=== PATIENT | male | born 1980 | race Caucasian/White ===

== ENCOUNTER 2016-10-12 01:17 | Emergency (ER) | payer BC ==
[2016-10-12] MEDS ORDERED: IPRATROPIUM/ALBUTEROL (0.5MG/3MG) NEB INH ONE (01:30)
[2016-10-12] MEDS ORDERED: METHYLPREDNISOLONE PF 125MG/VIAL IM ONE (01:47)
[2016-10-12] MEDS ORDERED: METHYLPREDNISOLONE PF 125MG/VIAL IVP ONE (01:49)
[2016-10-12 01:54] LABS: BASO % 0.4 % (0-6); GRAN % 67.5 % (47-80); HEMATOCRIT 41.2 % (42.0-52.0); LYMPH % 20.7 % (16-45); MEAN CORPUSCULAR HEMOGLOBIN 30.2 pg (27-33); MEAN PLATELET VOLUME 9.6 fl (7.4-10.4); MONO % 10.4 % (0-9); PLATELET COUNT 430 K/uL (130-400); RED BLOOD COUNT 4.63 M/uL (4.40-5.70); RED CELL DISTRIBUTION WIDTH 13.3 % (11.5-14.5); WHITE BLOOD COUNT W/O DIFF 10.8 K/uL (4.2-12.2)
[2016-10-12 02:04] LABS: ANION GAP 11.9 (7-16); BLOOD UREA NITROGEN 10 mg/dL (9-20); CARBON DIOXIDE 23.1 mmol/L (22-30); CREATININE 1.1 mg/dL (0.66-1.25); EST GLOMERULAR FILTRATION RATE > 60 ml/min; GLUCOSE,RANDOM 88 mg/dL (70-110)
--- NOTE | 2016-10-12 02:09 | Emergency Department Record ---
History of Present Illness - General Chief Complaint: Shortness of breath Stated Complaint: ABRAHAN Time Seen by Provider: 10/12/16 01:19 Source: Patient Mode of Arrival: Ambulatory Limitations: No limitations - History of Present Illness Initial Comments: pt is c/o sob. he states he has been sick for a month w prod cough and hemoptysis and wheezing and sob., he has a hx of a necrotizing pneumonia in 2009 out in [place] after inhaling [place]ier water. he was very ill and has had intermittant bouts since w his lungs that includes hemoptysis. he says he was warned that this would happen MD Complaint: Cough, Pain with inspiration, Shortness of breath Onset/Timin -: Hour(s) Radiation: Other Severity scale (1-10): 8 Quality: Sharp, Stabbing Consistency: Constant, Getting worse Improves With: Nothing Worsens With: Coughing, Inspiration Context: Recent URI Associated Symptoms: Cough, Hemoptysis, Pain with inspiration, Sputum production Treatments Prior to Arrival: None - Related Data Home Oxygen Therapy: No Previous Rx's Medication Instructions Recorded Azithromycin [Zithromax] 250 mg PO DAILY #4 tab 10/12/16 Allergies Allergy/AdvReac Type Severity Reaction Status Date / Time Penicillins Allergy PT UNSURE Verified 10/12/16 01:20 OF REACTION Travel Screening - Travel/Exposure Within Last 30 Days Have you traveled within the last 30 days?: No - Travel Symptoms Symptom Screening: None Review of Systems Reviewed: No additional complaints except as noted below Constitutional: Reports: As per HPI. Denies: Chills, Fever, Malaise, Night sweats, Weakness, Weight change Eyes: Reports: As per HPI. Denies: Eye discharge, Eye pain, Photophobia, Vision change ENT: Reports: As per HPI. Denies: Congestion, Dental pain, Ear pain, Epistaxis , Hearing loss, Throat pain Respiratory: Reports: As per HPI. Denies: Cough, Dyspnea, Hemoptysis, Stridor, Wheezes Cardiovascular: Reports: As per HPI. Denies: Arrhythmia, Chest pain, Dyspnea on exertion, Edema, Murmurs, Orthopnea, Palpitations, Paroxysmal nocturnal dyspnea, Rheumatic Fever, Syncope Endocrine: Reports: As per HPI. Denies: Fatigue, Heat or cold intolerance, Polydipsia, Polyuria Gastrointestinal: Reports: As per HPI. Denies: Abdominal pain, Constipation, Diarrhea, Hematemesis, Hematochezia, Melena, Nausea, Vomiting Genitourinary: Reports: As per HPI. Denies: Dysuria, Frequency, Hematuria, Incontinence, Retention, Testicular pain, Testicular mass, Urgency Musculoskeletal: Reports: As per HPI. Denies: Arthralgia, Back pain, Gout, Joint swelling, Myalgia, Neck pain Skin: Reports: As per HPI. Denies: Bruising, Change in color, Change in hair/ nails, Lesions, Pruritus, Rash Neurological: Reports: As per HPI. Denies: Abnormal gait, Confusion, Headache, Numbness, Paresthesias, Seizure, Tingling, Tremors, Vertigo, Weakness Psychiatric: Reports: As per HPI. Denies: Anxiety, Auditory hallucinations, Depression, Homicidal thoughts, Suicidal thoughts, Visual hallucinations Hematological/Lymphatic: Reports: As per HPI. Denies: Anemia, Blood Clots, Easy bleeding, Easy bruising, Swollen glands Past Medical History - SOCIAL HISTORY Smoking Status: Current every day smoker Drug Use Detail:: Marijuana - RESPIRATORY Hx Respiratory Disorders: Yes Hx Pneumonia: Yes (2009; 2 other episodes needing IV antibiotics) - CARDIOVASCULAR Hx Cardio Disorders: No - NEURO Hx Neuro Disorders: No - GI Hx GI Disorders: No - Hx Genitourinary Disorders: No - ENDOCRINE Hx Endocrine Disorders: No - MUSCULOSKELETAL Hx Musculoskeletal Disorders: Yes - PSYCH Hx Psych Problems: Yes Comment:: PTSD - HEMATOLOGY/ONCOLOGY Hx Hematology/Oncology Disorders: No Family Medical History Any Significant Family History?: Yes Hx Diabetes: Father Physical Exam - General General Appearance: Alert, Oriented x3, Cooperative, Mild distress - Head Head exam: Normal inspection - Eye Eye exam: Normal appearance, PERRL, EOMI Pupils: Normal accommodation - ENT ENT exam: Normal exam, Mucous membranes moist, Normal external ear exam, Normal orophraynx Ear exam: Normal external inspection. negative: External canal tenderness Nasal Exam: Normal inspection. negative: Discharge, Sinus tenderness Mouth exam: Normal external inspection, Tongue normal Teeth exam: Normal inspection. negative: Dental caries Throat exam: Normal inspection. negative: Tonsillar erythema, Tonsillar exudate - Neck Neck exam: Normal inspection, Full ROM. negative: Tenderness - Respiratory Respiratory exam: Rhonchi, Wheezes. negative: Respiratory distress - Cardiovascular Cardiovascular Exam: Regular rate, Normal rhythm, Normal heart sounds - GI/Abdominal GI/Abdominal exam: Soft, Normal bowel sounds. negative: Tenderness - Rectal Rectal exam: Deferred - exam: Deferred - Extremities Extremities exam: Normal inspection, Full ROM, Normal capillary refill. negative: Tenderness - Back Back exam: Reports: Normal inspection, Full ROM. Denies: Muscle spasm, Rash noted, Tenderness - Neurological Neurological exam: Alert, CN II-XII intact, Normal gait, Oriented X3 - Psychiatric Psychiatric exam: Normal affect, Normal mood - Skin Skin exam: Dry, Intact, Normal color, Warm Course Vital Signs 10/12/16 10/12/16 01:21 01:27 Temperature 97.9 F Pulse Rate 84 69 Respiratory 26 H 20 Rate Blood Pressure 140/79 Pulse Ox 100 100 Medical Decision Making - Lab Data Result diagrams: 10/12/16 01:48 10/12/16 01:48 Lab Results 10/12/16 Range/Units 01:48 WBC 10.8 (4.2-12.2) K/uL RBC 4.63 (4.40-5.70) M/uL Hgb 14.0 (14.0-18.0) gm/dl Hct 41.2 L (42.0-52.0) % MCV 89.0 (81-97) fl MCH 30.2 (27-33) pg MCHC 34.0 (32-36) g/dl RDW 13.3 (11.5-14.5) % Plt Count 430 H (130-400) K/uL MPV 9.6 (7.4-10.4) fl Gran % 67.5 (47-80) % Lymphocytes % 20.7 (16-45) % Monocytes % 10.4 H (0-9) % Eosinophils % 1.0 (0-6) % Basophils % 0.4 (0-6) % Disposition Disposition: Discharge Clinical Impression: Hemoptysis Pneumonia Qualifiers: Pneumonia type: due to unspecified organism Laterality: bilateral Lung location : unspecified part of lung Qualified Code(s): J18.9 - Pneumonia, unspecified organism Disposition: Home, Self-Care Condition: (1) Good Instructions: Dyspnea (ED), Community-acquired Pneumonia (ED), Acute Hemoptysis (ED) Additional Instructions: follow up with family doctor without fail. return sooner if worse. have hemoptysis further evaluated Prescriptions: Azithromycin [Zithromax] 250 mg PO DAILY #4 tab Forms: Patient Portal Access
[2016-10-12] MEDS ORDERED: AZITHROMYCIN 500 MG TABLET PO ONE (02:50)
[2016-10-12] MEDS ORDERED: KETOROLAC 30 MG/ML VIAL IVP ONE (02:50)
[2016-10-12] MEDS ORDERED: ALBUTEROL HFA 8 GM INHALER INH ONE (02:50)
== END 2016-10-12 03:03 | disposition home or self-care (01) ==
LOC: ER 01:17
DX: J18.9 Pneumonia, unspecified organism (principal); R04.2 Hemoptysis; F17.200 Nicotine dependence, unspecified, uncomplicated
CPT/HCPCS: 71020; 80048; 85025; 94640; 94664; 96374; 96375; 99284; J1885; J2930

== ENCOUNTER 2017-08-18 09:10 | Inpatient (IN) | payer BC ==
[2017-08-18] MEDS ORDERED: 0.9 % SODIUM CHLORIDE 1,000 ML BAG IV ONE ×2 (09:20→11:25)
[2017-08-18] MEDS ORDERED: MORPHINE SULFATE 5 MG/ML PFS IVP ONE ×2 (09:20→12:29)
[2017-08-18] MEDS ORDERED: ONDANSETRON HCL IV 4 MG/2 ML VIAL IV ONE (09:20)
--- NOTE | 2017-08-18 09:27 | Emergency Department Record ---
History of Present Illness - General Chief complaint: Rectal bleeding Stated complaint: BLOODY STOOL,ABD PAIN Time Seen by Provider: 08/18/17 09:20 Source: Patient, Family Mode of Arrival: Ambulatory Limitations: No limitations - History of Present Illness Initial comments: 37 yo male presents with nausea, vomiting and diarrhea that started Saturday evening around 6pm. The symptoms have continued through the weekend. On Saturday he noticed some blood in the diarrhea as well. No fever. He continues to have cramps, nausea, and vomiting. No history of travel, antibiotics. He works in a grocery store. No history of GI disease in the past. PCP is Gwendolyn Chacko MD complaint: Other (mixed with diarrhea) -: Days(s) Radiation: Other (diffuse) Quality: Cramping Consistency: Constant Improves with: None Worsens with: Eating Context: Other Associated Symptoms: Loss of appetite, Vomiting - Related Data Allergies Allergy/AdvReac Type Severity Reaction Status Date / Time Penicillins Allergy PT UNSURE Verified 08/18/17 09:16 OF REACTION Review of Systems Constitutional: Reports: Malaise, Weakness. Denies: Chills, Fever Eyes: Denies: Eye discharge, Photophobia, Vision change ENT: Denies: Congestion, Ear pain, Epistaxis, Throat pain Respiratory: Denies: Cough, Dyspnea, Hemoptysis, Stridor, Wheezes Cardiovascular: Denies: Chest pain, Palpitations, Syncope Endocrine: Reports: Fatigue Gastrointestinal: Reports: Abdominal pain, Diarrhea, Hematochezia, Nausea, Vomiting. Denies: Constipation, Hematemesis, Melena Genitourinary: Denies: Dysuria, Frequency, Hematuria Musculoskeletal: Denies: Arthralgia, Back pain, Joint swelling, Myalgia Skin: Denies: Bruising, Change in color, Rash Neurological: Denies: Headache, Numbness, Weakness Psychiatric: Denies: Anxiety Hematological/Lymphatic: Denies: Blood Clots, Easy bleeding, Easy bruising, Swollen glands Past Medical History - SOCIAL HISTORY Smoking Status: Current every day smoker Drug Use Detail:: Marijuana - RESPIRATORY Hx Respiratory Disorders: Yes Hx Pneumonia: Yes (2009; 2 other episodes needing IV antibiotics) - CARDIOVASCULAR Hx Cardio Disorders: No - NEURO Hx Neuro Disorders: No - GI Hx GI Disorders: No - Hx Genitourinary Disorders: No - ENDOCRINE Hx Endocrine Disorders: No - MUSCULOSKELETAL Hx Musculoskeletal Disorders: Yes - PSYCH Hx Psych Problems: Yes Comment:: PTSD - HEMATOLOGY/ONCOLOGY Hx Hematology/Oncology Disorders: No Family Medical History Hx Diabetes: Father Physical Exam - General General Appearance: Alert, Oriented x3, Cooperative, No acute distress Limitations: No limitations - Head Head exam: Normal inspection - Eye Eye exam: Normal appearance, PERRL. negative: Conjunctival injection, Scleral icterus - ENT ENT exam: Normal exam, Mucous membranes moist Ear exam: Normal external inspection Nasal Exam: Normal inspection Mouth exam: Normal external inspection Teeth exam: Normal inspection Throat exam: Normal inspection - Neck Neck exam: Normal inspection, Full ROM. negative: Tenderness - Respiratory Respiratory exam: Normal lung sounds bilaterally. negative: Respiratory distress, Rhonchi, Stridor, Wheezes - Cardiovascular Cardiovascular Exam: Regular rate, Normal rhythm, Normal heart sounds - GI/Abdominal GI/Abdominal exam: Soft, Tenderness (soft but diffusely tender abdomen) - exam: Deferred - Extremities Extremities exam: Normal inspection, Full ROM, Normal capillary refill. negative: Tenderness - Back Back exam: Reports: Normal inspection, Full ROM. Denies: Muscle spasm, Rash noted, Tenderness - Neurological Neurological exam: Alert, Normal gait, Oriented X3, Reflexes normal - Psychiatric Psychiatric exam: Normal affect, Normal mood - Skin Skin exam: Dry, Intact, Normal color, Warm Course Vital Signs 08/18/17 09:16 Temperature 98.2 F Pulse Rate [ 71 Pulse Ox Probe] Respiratory 20 Rate Blood Pressure 138/84 [Left Arm] Pulse Ox 99 - Reevaluation(s) Reevaluation #1: 08/18/17 10:05 The CBC was reviewed WBC is 16 CT of the abdomen and pelvis ordered with the pain and elevated WBC count 08/18/17 10:19 No changes on the CMP Lipase is 107 08/18/17 16:[address] scan demonstrates colitis. There is severe wall thickening affecting the ascending and transverse colon with inflammation of the adjacent fat and small amount of free fluid. The patient is a patient of the [facility]. Milka Ogden. She accepts the patient for IV fluids, antibiotics, pain control, NPO and reassessment. Medical Decision Making - Lab Data Result diagrams: 08/18/17 09:35 08/18/17 09:35 Disposition Disposition: Admit Clinical Impression: Vomiting and diarrhea, Colitis Disposition: Still a Patient at [facility] Decision to Admit: Admit from ER Decision to Admit Date: 08/18/17 Decision to Admit Time: 16:05 Time Discussed w/Accepting Physician: 16:05 Condition: (2) Stable Forms: Patient Portal Access Time of Disposition: 16:05 Quality - Quality Measures Quality Measures: N/A - Blood Pressure Screening Does Patient Have Any of the Following: No Blood Pressure Classification: Hypertensive Reading Systolic Measurement: 144 Diastolic Measurement: 79 Screening for High Blood Pressure: < Pre-Hypertensive BP, F/U Documented > [ [id number]] Pre-Hypertensive Follow-up Interventions: Referral to alternative/primary care provider.
[2017-08-18 09:50] LABS: HEMATOCRIT 43.1 % (42.0-52.0); MEAN CELL VOLUME 86.5 fl (81-97); MEAN CORPUSCULAR HEMOGLOBIN 30.1 pg (27-33); MEAN CORPUSCULAR HGB CONC 34.8 g/dl (32-36); MEAN PLATELET VOLUME 9.8 fl (7.4-10.4); PLATELET COUNT 385 K/uL (130-400); RED BLOOD COUNT 4.98 M/uL (4.40-5.70); RED CELL DISTRIBUTION WIDTH 14.9 % (11.5-14.5); WHITE BLOOD COUNT W/O DIFF 16.6 K/uL (4.2-12.2)
[2017-08-18 09:58] LABS: PLATELET ESTIMATE NORMAL (NORMAL)
[2017-08-18 09:59] LABS: BLOOD UREA NITROGEN 11 mg/dL (6-20); CREATININE 0.9 mg/dL (0.7-1.2); EST GLOMERULAR FILTRATION RATE > 60 mL/min; TOTAL PROTEIN 7.7 g/dL (6.6-8.7)
[2017-08-18 10:01] LABS: GLUCOSE,RANDOM 122 mg/dL (74-109)
[2017-08-18 10:04] LABS: ALBUMIN 4.6 g/dL (4.0-5.0); ALKALINE PHOSPHATASE 67 U/L (40-129); ALT/SGPT 22 U/L (<41); AST/SGOT 14 U/L (10.0-50.0); BILIRUBIN,DIRECT 0.2 mg/dL (0-0.3); LIPASE 107 U/L (13-60)
[2017-08-18] MEDS ORDERED: ONDANSETRON HCL IV 4 MG/2 ML VIAL IVP ONE (10:09)
[2017-08-18 12:21] LABS: URINE APPEARANCE CLEAR; URINE BILIRUBIN NEGATIVE (NEGATIVE); URINE BLOOD TRACE-I (NEGATIVE); URINE COLOR YELLOW; URINE GLUCOSE (UA) NEGATIVE (NEGATIVE); URINE KETONE TRACE (NEGATIVE); URINE LEUKOCYTE ESTERASE NEGATIVE (NEGATIVE); URINE NITRITE NEGATIVE (NEGATIVE); URINE PROTEIN NEGATIVE (NEGATIVE); URINE UROBILINOGEN 0.2 E.U./dL (0.20 - 1.00)
[2017-08-18 12:30] LABS: URINE EPITHELIAL CELLS 0 - 2 (FEW); URINE RBC 0 - 2 (NONE SEEN); URINE WBC 0 - 2 (0-2/hpf)
[2017-08-18 12:31] LABS: URINE BACTERIA 1+
[2017-08-18 12:56] LABS: ROTOVIRUS NOT DETECTED (NOT DETECT)
[2017-08-18 13:10] LABS: CRYPTOSPORIDIUM PARVUM ANTIGEN NOT DETECTED (NOT DETECT); GIARDIA LAMBLIA ANTIGEN NOT DETECTED (NOT DETECT)
[2017-08-18 14:08] LABS: MOLECULAR C DIFF TOXIN SCREEN NOT DETECTED (NOT DETECT)
[2017-08-18] MEDS ORDERED: HYDROMORPHONE HCL 1 MG/ML SYRINGE IVP ONE (16:33)
[2017-08-18] MEDS ORDERED: PROMETHAZINE HCL 12.5 MG in 0.9 % SODIUM CHLORIDE 100ML 100 ML IVPB ONE (16:37)
[2017-08-18] MEDS ORDERED: CIPROFLOXACIN LACTATE/D5W 400 MG/200 ML BAG IVPB SCH (17:31)
[2017-08-18] MEDS ORDERED: METRONIDAZOLE IVPB 500 MG/100 ML BAG IVPB SCH (17:31)
[2017-08-18] MEDS ORDERED: ACETAMINOPHEN 1,000 MG/100 ML BTL IVPB SCH (17:31)
[2017-08-18] MEDS: 0.9 % SODIUM CHLORIDE 1000ML 1,000 ML IV PRN (17:58)
[2017-08-18] MEDS: MORPHINE SULFATE 5 MG/ML PFS IVP PRN (23:02)
[2017-08-19] MEDS: ACETAMINOPHEN 1,000 MG/100 ML BTL IVPB SCH ×4 (03:32→22:05)
[2017-08-19] MEDS: MORPHINE SULFATE 5 MG/ML PFS IVP PRN ×5 (03:35→22:26)
[2017-08-19] MEDS: METRONIDAZOLE IVPB 500 MG/100 ML BAG IVPB SCH ×3 (03:44→20:02)
[2017-08-19] MEDS: 0.9 % SODIUM CHLORIDE 1000ML 1,000 ML IV PRN ×2 (03:45→16:55)
[2017-08-19] MEDS: ONDANSETRON HCL IV 4 MG/2 ML VIAL IVP PRN (06:15)
[2017-08-19 06:41] LABS: BASO % 0.4 % (0-6); EOS % 2.2 % (0-6); GRAN % 58.7 % (47-80); HEMATOCRIT 39.2 % (42.0-52.0); HEMOGLOBIN 13.1 gm/dl (14.0-18.0); LYMPH % 26.6 % (16-45); MEAN CELL VOLUME 89.7 fl (81-97); MEAN CORPUSCULAR HGB CONC 33.4 g/dl (32-36); MEAN PLATELET VOLUME 9.7 fl (7.4-10.4); MONO % 12.1 % (0-9); PLATELET COUNT 298 K/uL (130-400); RED BLOOD COUNT 4.37 M/uL (4.40-5.70); WHITE BLOOD COUNT W/O DIFF 7.8 K/uL (4.2-12.2)
[2017-08-19 06:44] LABS: MEAN CORPUSCULAR HEMOGLOBIN 29.9 pg (27-33)
[2017-08-19 06:56] LABS: ALB/GLOB RATIO 1.3 (1.1-1.8); ALBUMIN 3.7 g/dL (4.0-5.0); ALKALINE PHOSPHATASE 53 U/L (40-129); ALT/SGPT 12 U/L (<41); AST/SGOT 11 U/L (10.0-50.0); BLOOD UREA NITROGEN 9 mg/dL (6-20); CREATININE 0.9 mg/dL (0.7-1.2); EST GLOMERULAR FILTRATION RATE > 60 mL/min; GLUCOSE,RANDOM 81 mg/dL (74-109); LIPASE 176 U/L (13-60); TOTAL PROTEIN 6.5 g/dL (6.6-8.7)
[2017-08-19] MEDS ORDERED: CIPROFLOXACIN LACTATE/D5W 400 MG/200 ML BAG IVPB SCH (08:00)
--- NOTE | 2017-08-19 10:53 | History & Physical ---
History of Present Illness - Date of Service Date of Service for History & Physical: 08/19/17 - History of Present Illness Admitting Diagnosis: Colitis History of Present Illness: 37yo male with CC of abdominal pain. He has history of PTSD, and hospitalization for pneumonia. Patient began having abdominal pain Varinder evening that woke him from sleep. Says it was diffuse and sharp. He then began having nausea and vomiting, having trouble keeping water down. He then developed frequent loose stool that eventually became mostly liquid with blood in it. He decided to come to the ED because his pain wasn't getting any better. While in the ED, patient was afebrile with temp of 98.2, blood pressure of 138/ 84. He had WBC count of 16.6. UA was negative for infection but did have trace ketones. He underwent CT of the abdomen which revealed severe wall thickening of the ascending and transverse colon with fat stranding and small amount of free fluid. His stool was checked and negative for C.diff, crypto, giardia, polys, and rota virus. He was started on IV cipro and flagyl and admitted. 08/19/17- Patient states he is feeling a little better. Says the pain medication has been helpful, but whenever it wears off he says his pain becomes more intense. He is not having any more vomiting currently, occasionally still has some nausea when the pain intensifies. He says the pain is primarily lower abdomen in both the left and right sides. He says it is sharp, but he also has some cramping pain. He did not have any loose stool through the night while being NPO but he had some water this morning and says he did have a BM. He says there isn't much fecal material, mostly clear liquid with scant bright red/pink blood. He denies any fevers/chills. Has not traveled recently. No sick contacts. No new foods or undercooked food. He has never had this issue before. He says his younger brother has "bowel issues" and has had a colonoscopy but he is unsure what he was diagnosed with. Travel Screening - Travel/Exposure Within Last 30 Days Have you traveled within the last 30 days?: No - Travel/Exposure Within Last Year Have you traveled outside the [place] in the last year?: No - Additonal Travel Details Have you been exposed to anyone with a communicable illness?: No - Travel Symptoms Symptom Screening: None Review of Systems Constitutional: Reports: Malaise, Weakness. Denies: Chills, Fever Eyes: Denies: Eye discharge, Photophobia, Vision change ENT: Denies: Congestion, Ear pain, Epistaxis, Throat pain Respiratory: Denies: Cough, Dyspnea, Hemoptysis, Stridor, Wheezes Cardiovascular: Denies: Chest pain, Palpitations, Syncope Endocrine: Reports: Fatigue Gastrointestinal: Reports: Abdominal pain, Diarrhea, Hematochezia, Nausea, Vomiting. Denies: Constipation, Hematemesis, Melena Genitourinary: Denies: Dysuria, Frequency, Hematuria Musculoskeletal: Denies: Arthralgia, Back pain, Joint swelling, Myalgia Skin: Denies: Bruising, Change in color, Rash Neurological: Denies: Headache, Numbness, Weakness Psychiatric: Denies: Anxiety Hematological/Lymphatic: Denies: Blood Clots, Easy bleeding, Easy bruising, Swollen glands Past Medical History - SOCIAL HISTORY Smoking Status: Former smoker Alcohol Use: None Drug Use: Occasional Drug Use Detail:: Marijuana - RESPIRATORY Hx Respiratory Disorders: Yes Hx Pneumonia: Yes (2009; 2 other episodes needing IV antibiotics) - CARDIOVASCULAR Hx Cardio Disorders: No - NEURO Hx Neuro Disorders: No - GI Hx GI Disorders: No - Hx Genitourinary Disorders: No - ENDOCRINE Hx Endocrine Disorders: No - MUSCULOSKELETAL Hx Musculoskeletal Disorders: Yes - PSYCH Hx Psych Problems: Yes Comment:: PTSD - HEMATOLOGY/ONCOLOGY Hx Hematology/Oncology Disorders: No Family Medical History Any Significant Family History?: Yes Hx Diabetes: Father H&P Meds/Allergies - Allergies Allergies: Allergies Allergy/AdvReac Type Severity Reaction Status Date / Time Penicillins Allergy PT UNSURE Verified 08/18/17 09:16 OF REACTION - Active Medications Active Medications: Current Medications Citalopram Hydrobromide (Celexa) 10 mg PO QHS PADMAJA Sodium Chloride () 1,000 mls @ 125 mls/hr IV .Q8H PRN PRN Reason: LARGE VOLUME IV Last Admin: 08/19/17 03:45 Dose: 125 mls/hr Metronidazole/Sodium Chloride (Flagyl) 500 mg in 100 mls @ 100 mls/hr IVPB Q8H PADMAJA Stop: 08/24/17 04:01 Last Infusion: 08/19/17 04:45 Dose: Infused Acetaminophen (Ofirmev) 1,000 mg in 100 mls @ 400 mls/hr IVPB Q6H [facility] Last Admin: 08/19/17 09:21 Dose: 400 mls/hr Ciprofloxacin Lactate (Cipro) 400 mg in 200 mls @ 200 mls/hr IVPB Q12H PADMAJA Stop: 08/24/17 21:01 Morphine Sulfate (Morphine Sulfate) 4 mg IVP Q4HR PRN PRN Reason: Abdominal Pain Stop: 08/25/17 17:32 Last Admin: 08/19/17 09:22 Dose: 4 mg Ondansetron HCl (Zofran) 4 mg IVP Q4H PRN PRN Reason: NAUSEA Last Admin: 08/19/17 06:15 Dose: 4 mg Physical Exam - Vital Signs Vital Signs: Vital Signs - Last 24 Hrs Temp Pulse Resp BP BP Pulse Ox 08/19/17 09:00 54 L 16 08/19/17 03:57 98.3 F 54 L 16 120/58 96 08/18/17 23:31 98.2 F 57 L 18 116/65 97 08/18/17 20:09 16 08/18/17 17:31 98 F 56 L 16 146/84 98 - General General Appearance: Alert, Oriented x3, Cooperative, No acute distress Limitations: No limitations - Head Head exam: Normal inspection - Eye Eye exam: Normal appearance, PERRL. negative: Conjunctival injection, Scleral icterus - ENT ENT exam: Normal exam, Mucous membranes moist Ear exam: Normal external inspection Nasal Exam: Normal inspection Mouth exam: Normal external inspection Teeth exam: Normal inspection Throat exam: Normal inspection - Neck Neck exam: Normal inspection, Full ROM. negative: Tenderness - Respiratory Respiratory exam: Normal lung sounds bilaterally. negative: Respiratory distress, Rhonchi, Stridor, Wheezes - Cardiovascular Cardiovascular Exam: Regular rate, Normal rhythm, Normal heart sounds - GI/Abdominal GI/Abdominal exam: Soft, Hyperactive bowel sounds, Tenderness (soft; no guarding ; ttp in the LLQ and RLQ) - exam: Deferred - Extremities Extremities exam: Normal inspection, Full ROM, Normal capillary refill. negative: Tenderness - Back Back exam: Reports: Normal inspection, Full ROM. Denies: Muscle spasm, Rash noted, Tenderness - Neurological Neurological exam: Alert, Normal gait, Oriented X3, Reflexes normal - Psychiatric Psychiatric exam: Normal affect, Normal mood - Skin Skin exam: Dry, Intact, Normal color, Warm Results - Labs Result Diagrams: 08/19/17 06:29 08/19/17 06:29 Labs Last 24 Hours: Laboratory Results - last 24 hr 08/19/17 08/19/17 06:29 06:29 WBC 7.8 RBC 4.37 L Hgb 13.1 L Hct 39.2 L MCV 89.7 MCH 29.9 MCHC 33.4 RDW 15.0 H Plt Count 298 MPV 9.7 Gran % 58.7 Lymphocytes % 26.6 Monocytes % 12.1 H Eosinophils % 2.2 Basophils % 0.4 Sodium 142 Potassium 3.8 Chloride 107 Carbon Dioxide 23.0 Anion Gap 12.0 BUN 9 Creatinine 0.9 Estimated GFR > 60 Random Glucose 81 Calcium 8.5 L Total Bilirubin 0.70 AST 11 ALT 12 Alkaline Phosphatase 53 Total Protein 6.5 L Albumin 3.7 L Globulin 2.8 Albumin/Globulin Ratio 1.3 Lipase 176 H - Imaging and Cardiology CT scan - abdomen Status: Report reviewed VTE H&P Assessment - Risk for VTE Risk for VTE: Yes Risk Level: Low Risk Assessment Date: 08/19/17 Risk Assessment Time: 11:30 VTE Orders Placed or Will Be Placed: Yes Plan - Inpatient Certification Inpatient Certification: Admit to inpatient care: Based on my medical assessment, after consideration of patient's risk factors (age, co-morbidities and patient presenting symptoms and acuity), I expect that this patient will remain in the hospital greater than or equal to two midnights and that the services needed warrant inpatient care because: Patient Risk Factors: colitis, leukocytosis, intractable abdominal pain, ] Estimated length of stay: [48-72H] The patient may reasonably be expected to be discharged or transferred to a hospital within 96 hours after admission to [facility]. Services needed: [IV antibiotics, surgery consultation, IV pain medications] Post hospital care (if known): [] I certify that my determination is in accordance with my understanding of Medicare requirements for reasonable and necessary inpatient services. 08/19/17 10:44 - Detailed Diagnosis and Plan (1) Colitis Current Visit: Yes Status: Acute Base Code: K52.9 - NONINFECTIVE GASTROENTERITIS AND COLITIS, UNSPECIFIED Comment: 08/19/17- CT scan showing severe wall thickening of the ascending and transverse colon. WBC count of 16.6 down to 7.8 today following administration of IV cipro and flagyl. He remains afebrile and pain is better controlled. Surgery consulted and recommended advancing diet to clear liquids. Stool studies negative up until this point. likely infectious etiology, low risk for ishemic colitis. No GI here today, but will get GI outpatient set up prior to discharge for follow up scope. -shiga toxin pending. will discontinue abx if positive -continue cipro 400mg IV q12H and flagyl 500mg IV q8H -continue IV morphine for pain control -continue clear liquid diet and may advance if tolerating -vitals Q8H -repeat labs qam (2) Full code status Current Visit: Yes Status: Acute Base Code: Z78.9 - OTHER SPECIFIED HEALTH STATUS Comment: 08/19/17- patient is full code (3) DVT prophylaxis Current Visit: Yes Status: Acute Base Code: [id number] - Comment: 08/19/17- patient is low risk with age and had positive stool occult. -will add SCD's
--- NOTE | 2017-08-19 12:30 | Medical Records Consult ---
DATE OF CONSULTATION: 08/19/2017 PERSON REQUESTING CONSULT: Domo Matson M.D. REASON FOR CONSULTATION: Bloody diarrhea. HISTORY OF PRESENT ILLNESS: The patient is a 29-year-old male who stated that on Saturday evening he developed some diffuse abdominal pain. This was accompanied by some cramping and then bloody diarrhea followed. He never had an issue with this in the past. He was since seen at [facility] where a full workup was done. This did include laboratory values and CT scan. CT scan did show diffuse thickening of his ascending and proximal transverse colon. There was no perforation, no free air. He states since being here, this diarrhea has slowed down and he actually feels better now, although some abdominal pain still remains. He denies any travel outside the country. He denies being around other people that were ill, denies any other GI issues. He has not been on recent antibiotics or has eaten any raw food. PAST MEDICAL HISTORY: Significant for MRSA pneumonia, requiring thoracotomy. PAST SURGICAL HISTORY: Thoracotomy decortication. MEDICATIONS: He currently takes no medication. ALLERGIES: PENICILLIN. SOCIAL HISTORY: He does smoke marijuana on a daily basis. PHYSICAL EXAMINATION: VITAL SIGNS: Stable. He is afebrile. HEART: Regular rate and rhythm. LUNGS: Decreased. ABDOMEN: Soft. There is some tenderness with deep palpation. There is no guarding, rebound, or other. Bowel sounds are noted. EXTREMITIES: Show no traces of edema. Laboratory values were reviewed. White count on admission was 16.6, it is 7.8 currently. Hemoglobin has been stable, admission hemoglobin was 15; it is currently 13.1. Multiple stool studies were checked. He was positive for occult blood. The white cells were negative. Rotavirus negative. C. Diff negative. Cryptosporidium negative. Giardia negative. His Shiga toxin is pending. IMPRESSION: Colitis, most likely infectious colitis due to his age. We will continue further workup. He is currently being treated with antibiotics, which, if his Shiga toxin comes back positive, I would stop, due to the fact that he would be at increased risk for hemolytic uremic syndrome. I would continue supportive care, institute a diet, and he may need a colonoscopy in the near future. At this point, he needs no surgical intervention, unless his clinical condition changes. Thank you for this referral. CC: MADISON Hickey
[2017-08-19] MEDS: CITALOPRAM 20 MG TABLET PO SCH ×2 (14:10→22:04)
[2017-08-19] MEDS: CIPROFLOXACIN LACTATE/D5W 400 MG/200 ML BAG IVPB SCH (21:00)
[2017-08-20] MEDS: MORPHINE SULFATE 5 MG/ML PFS IVP PRN ×2 (03:44→09:15)
[2017-08-20] MEDS: METRONIDAZOLE IVPB 500 MG/100 ML BAG IVPB SCH ×2 (03:44→13:32)
[2017-08-20] MEDS: 0.9 % SODIUM CHLORIDE 1000ML 1,000 ML IV PRN ×2 (04:59→17:44)
[2017-08-20] MEDS: ACETAMINOPHEN 1,000 MG/100 ML BTL IVPB SCH ×4 (05:10→22:47)
[2017-08-20 06:38] LABS: BASO % 0.5 % (0-6); EOS % 2.4 % (0-6); GRAN % 60.7 % (47-80); HEMATOCRIT 37.9 % (42.0-52.0); HEMOGLOBIN 12.6 gm/dl (14.0-18.0); LYMPH % 26.7 % (16-45); MEAN CELL VOLUME 89.4 fl (81-97); MEAN CORPUSCULAR HEMOGLOBIN 29.7 pg (27-33); MEAN CORPUSCULAR HGB CONC 33.2 g/dl (32-36); MEAN PLATELET VOLUME 9.4 fl (7.4-10.4); MONO % 9.7 % (0-9); PLATELET COUNT 290 K/uL (130-400); RED BLOOD COUNT 4.24 M/uL (4.40-5.70); RED CELL DISTRIBUTION WIDTH 14.5 % (11.5-14.5); WHITE BLOOD COUNT W/O DIFF 6.3 K/uL (4.2-12.2)
[2017-08-20 06:56] LABS: ALB/GLOB RATIO 1.3 (1.1-1.8); ALBUMIN 3.5 g/dL (4.0-5.0); ALKALINE PHOSPHATASE 49 U/L (40-129); ALT/SGPT 11 U/L (<41); AST/SGOT 12 U/L (10.0-50.0); BLOOD UREA NITROGEN 8 mg/dL (6-20); CREATININE 0.8 mg/dL (0.7-1.2); EST GLOMERULAR FILTRATION RATE > 60 mL/min; GLUCOSE,RANDOM 78 mg/dL (74-109); LIPASE 68 U/L (13-60); TOTAL PROTEIN 6.2 g/dL (6.6-8.7)
[2017-08-20] MEDS: CIPROFLOXACIN LACTATE/D5W 400 MG/200 ML BAG IVPB SCH (09:14)
[2017-08-20] MEDS: ONDANSETRON HCL IV 4 MG/2 ML VIAL IVP PRN (11:06)
--- NOTE | 2017-08-20 14:05 | Physician Progress Note ---
Subjective - Date Date of Physician Progress Note: 08/20/17 - Subjective Subjective Comment: Patient still complains of left lower abdominal pain on palpation. He has not had any bloody bowel movements since admission and is asking for his diet to be advanced. He says that he thinks that he can tolerate a heavier diet and he would like to try. Objective - Vital Signs Vital Signs: Vital Signs - Last 24 Hrs Temp Pulse Resp BP Pulse Ox 08/20/17 10:55 98.8 F 52 L 16 144/74 96 08/20/17 04:37 98.0 F 53 L 16 123/65 96 08/19/17 22:53 98.1 F 53 L 16 134/79 97 08/19/17 20:19 16 08/19/17 17:00 98.6 F 51 L 16 119/65 96 - General General Appearance: Alert, Oriented x3, Cooperative, No acute distress Limitations: No limitations - Head Head exam: Normal inspection - Eye Eye exam: Normal appearance, PERRL. negative: Conjunctival injection, Scleral icterus - ENT ENT exam: Normal exam, Mucous membranes moist Ear exam: Normal external inspection Nasal Exam: Normal inspection Mouth exam: Normal external inspection Teeth exam: Normal inspection Throat exam: Normal inspection - Neck Neck exam: Normal inspection, Full ROM. negative: Tenderness - Respiratory Respiratory exam: Normal lung sounds bilaterally. negative: Respiratory distress, Rhonchi, Stridor, Wheezes - Cardiovascular Cardiovascular Exam: Regular rate, Normal rhythm, Normal heart sounds Peripheral Pulses: 2+: Radial (R), Radial (L) - GI/Abdominal GI/Abdominal exam: Soft, Normal bowel sounds, Tenderness (soft; no guarding; LLQ tenderness) - exam: Deferred - Extremities Extremities exam: Normal inspection, Full ROM, Normal capillary refill. negative: Tenderness - Back Back exam: Reports: Normal inspection, Full ROM. Denies: Muscle spasm, Rash noted, Tenderness - Neurological Neurological exam: Alert, Normal gait, Oriented X3, Reflexes normal - Psychiatric Psychiatric exam: Normal affect, Normal mood - Skin Skin exam: Dry, Intact, Normal color, Warm Assessment and Plan - Assessment and Plan (1) Colitis Current Visit: Yes Status: Acute Base Code: K52.9 - NONINFECTIVE GASTROENTERITIS AND COLITIS, UNSPECIFIED Comment: 08/19/17- CT scan showing severe wall thickening of the ascending and transverse colon. WBC count of 16.6 down to 7.8 today following administration of IV cipro and flagyl. He remains afebrile and pain is better controlled. Surgery consulted and recommended advancing diet to clear liquids. Stool studies negative up until this point. likely infectious etiology, low risk for ishemic colitis. No GI here today, but will get GI outpatient set up prior to discharge for follow up scope. -shiga toxin pending. will discontinue abx if positive -continue cipro 400mg IV q12H and flagyl 500mg IV q8H -continue IV morphine for pain control -continue clear liquid diet and may advance if tolerating -vitals Q8H -repeat labs qam (2) DVT prophylaxis Current Visit: Yes Status: Acute Base Code: [id number] - Comment: 08/19/17- patient is low risk with age and had positive stool occult. -will add SCD's (3) Full code status Current Visit: Yes Status: Acute Base Code: Z78.9 - OTHER SPECIFIED HEALTH STATUS Comment: 08/19/17- patient is full code (4) Vomiting and diarrhea Current Visit: Yes Status: Acute Base Code: R11.10 - VOMITING, UNSPECIFIED; R19.7 - DIARRHEA, UNSPECIFIED Results - Labs Result Diagrams: 08/20/17 06:20 08/20/17 06:30 Labs Last 24 Hours: Laboratory Results - last 24 hr 08/20/17 08/20/17 06:20 06:30 WBC 6.3 RBC 4.24 L Hgb 12.6 L Hct 37.9 L MCV 89.4 MCH 29.7 MCHC 33.2 RDW 14.5 Plt Count 290 MPV 9.4 Gran % 60.7 Lymphocytes % 26.7 Monocytes % 9.7 H Eosinophils % 2.4 Basophils % 0.5 Sodium 140 Potassium 3.8 Chloride 106 Carbon Dioxide 23.0 Anion Gap 11.0 BUN 8 Creatinine 0.8 Estimated GFR > 60 Random Glucose 78 Calcium 8.3 L Total Bilirubin 0.50 AST 12 ALT 11 Alkaline Phosphatase 49 Total Protein 6.2 L Albumin 3.5 L Globulin 2.7 Albumin/Globulin Ratio 1.3 Lipase 68 H DVT/PE Assessment - Risk for VTE Risk for VTE: No Risk Level: Low Risk Assessment Date: 08/19/17 Risk Assessment Time: 11:30 VTE Orders Placed or Will Be Placed: Yes - Active Medicaitons Current Medications: Current Medications Ciprofloxacin (Cipro) 500 mg PO Q12HR PADMAJA Citalopram Hydrobromide (Celexa) 10 mg PO QHS [facility] Last Admin: 08/19/17 22:04 Dose: 10 mg Sodium Chloride () 1,000 mls @ 125 mls/hr IV .Q8H PRN PRN Reason: LARGE VOLUME IV Last Admin: 08/20/17 04:59 Dose: 125 mls/hr Acetaminophen (Ofirmev) 1,000 mg in 100 mls @ 400 mls/hr IVPB Q6H [facility] Last Infusion: 08/20/17 13:27 Dose: Infused Metronidazole (Flagyl) 500 mg PO Q8H PADMAJA Morphine Sulfate () 12 mg PO Q12H PRN PRN Reason: Abdominal Pain Ondansetron HCl (Zofran) 4 mg IVP Q4H PRN PRN Reason: NAUSEA Last Admin: 08/20/17 11:06 Dose: 4 mg AMI Plan - Labs Result Diagrams: 08/20/17 06:20 08/20/17 06:30
[2017-08-20] MEDS: MORPHINE SULFATE 15 MG TABLET.ER PO PRN (16:39)
[2017-08-20] MEDS: CITALOPRAM 20 MG TABLET PO SCH (22:48)
[2017-08-20] MEDS: CIPROFLOXACIN HCL 500 MG TABLET PO SCH (22:48)
[2017-08-20] MEDS: METRONIDAZOLE 250 MG TABLET PO SCH (22:48)
[2017-08-21] MEDS: ACETAMINOPHEN 1,000 MG/100 ML BTL IVPB SCH (06:23)
[2017-08-21] MEDS: METRONIDAZOLE 250 MG TABLET PO SCH ×2 (06:23→13:19)
[2017-08-21] MEDS: MORPHINE SULFATE 15 MG TABLET.ER PO PRN (06:24)
[2017-08-21] MEDS: CIPROFLOXACIN HCL 500 MG TABLET PO SCH (09:56)
--- NOTE | 2017-08-21 10:37 | Discharge Summary ---
Providers Discharge Summary Date: 08/21/17 Date of admission: 08/18/17 17:23 Expected Date of Discharge: 08/21/17 Attending physician: AVA CHRISTOPHER Primary care physician: Maria L Grimaldo N.P. Consults: Consult Orders 08/19/17 07:23 Consult NOW Consulting Provider: Harpreet Mclean Physician Instructions: Reason For Exam: colitis Physical Exam - Vital Signs Vital Signs: Vital Signs - Last 24 Hrs Temp Pulse Resp BP BP Pulse Ox 08/21/17 07:32 16 08/21/17 07:30 98.2 F 50 L 18 141/85 99 08/21/17 06:15 97.9 F 50 L 16 146/51 99 08/20/17 23:00 97.8 F 50 L 16 138/81 97 08/20/17 16:34 97.8 F 46 L 15 135/74 97 08/20/17 10:55 98.8 F 52 L 16 144/74 96 - General General Appearance: Alert, Oriented x3, Cooperative, No acute distress Limitations: No limitations - Head Head exam: Normal inspection - Eye Eye exam: Normal appearance, PERRL. negative: Conjunctival injection, Scleral icterus - ENT ENT exam: Normal exam, Mucous membranes moist Ear exam: Normal external inspection Nasal Exam: Normal inspection Mouth exam: Normal external inspection Teeth exam: Normal inspection Throat exam: Normal inspection - Neck Neck exam: Normal inspection, Full ROM. negative: Tenderness - Respiratory Respiratory exam: Normal lung sounds bilaterally. negative: Respiratory distress, Rhonchi, Stridor, Wheezes - Cardiovascular Cardiovascular Exam: Regular rate, Normal rhythm, Normal heart sounds Peripheral Pulses: 2+: Radial (R), Radial (L) - GI/Abdominal GI/Abdominal exam: Soft, Normal bowel sounds - exam: Deferred - Extremities Extremities exam: Normal inspection, Full ROM, Normal capillary refill. negative: Tenderness - Back Back exam: Reports: Normal inspection, Full ROM. Denies: Muscle spasm, Rash noted, Tenderness - Neurological Neurological exam: Alert, Normal gait, Oriented X3, Reflexes normal - Psychiatric Psychiatric exam: Normal affect, Normal mood - Skin Skin exam: Dry, Intact, Normal color, Warm Hospitalization - Hospitalization Admission Diagnosis: Colitis - Problem List/Discharge Diagnosis (1) Colitis Status: Acute Base Code: K52.9 - NONINFECTIVE GASTROENTERITIS AND COLITIS, UNSPECIFIED Comment: 08/21/17 - patient's pain resolved and has been tolerating diet advacement. -shiga toxin negative, d/c abx - pain medication changed to PO morphine Q12H - outaptient follow up with GI for scope. (2) DVT prophylaxis Status: Acute Base Code: [id number] - Comment: - SCDs while in bed (3) Full code status Status: Acute Base Code: Z78.9 - OTHER SPECIFIED HEALTH STATUS Comment: 08/19- patient is full code (4) Vomiting and diarrhea Status: Acute Base Code: R11.10 - VOMITING, UNSPECIFIED; R19.7 - DIARRHEA, UNSPECIFIED - Hospitalization Course Disposition: Home, Self-Care Hospital Course: 37yo male with complaint of abdominal pain. He has history of PTSD, and hospitalization for pneumonia. Patient began having abdominal pain Varinder evening that woke him from sleep. Says it was diffuse and sharp. He then began having nausea and vomiting, having trouble keeping water down. He then developed frequent loose stool that eventually became mostly liquid with blood in it. He decided to come to the ED because his pain wasn't getting any better. While in the ED, patient was afebrile with temp of 98.2, blood pressure of 138/ 84. He had WBC count of 16.6. UA was negative for infection but did have trace ketones. He underwent CT of the abdomen which revealed severe wall thickening of the ascending and transverse colon with fat stranding and small amount of free fluid. His stool was checked and negative for C.diff, crypto, giardia, polys, and rota virus. He was started on IV cipro and flagyl and admitted. 08/19/17- Patient states he is feeling a little better. Says the pain medication has been helpful, but whenever it wears off he says his pain becomes more intense. He is not having any more vomiting currently, occasionally still has some nausea when the pain intensifies. He says the pain is primarily lower abdomen in both the left and right sides. He says it is sharp, but he also has some cramping pain. He did not have any loose stool through the night while being NPO but he had some water this morning and says he did have a BM. He says there isn't much fecal material, mostly clear liquid with scant bright red/pink blood. He denies any fevers/chills. Has not traveled recently. No sick contacts. No new foods or undercooked food. He has never had this issue before. He says his younger brother has "bowel issues" and has had a colonoscopy but he is unsure what he was diagnosed with. 08/20-08/21/17 The patient showed continued improvement over 48 hours. He was initially able to tolerate a clear liquid diet which was advanced further to a full diet and medications changed to oral. The patient had minimal pain, was able to move his bowels and be discharged home comfortably without new symptoms. Stool culture for toxins were negative and antibiotics were stopped. The patient is to follow up with his PCP and Gastroenterology for colonoscopy within the next few weeks. Abnormal Labs: Abnormal Lab Results 08/19/17 08/19/17 08/20/17 Range/Units 06:29 06:29 06:20 RBC 4.37 L 4.24 L (4.40-5.70) M/uL Hgb 13.1 L 12.6 L (14.0-18.0) gm/dl Hct 39.2 L 37.9 L (42.0-52.0) % RDW 15.0 H (11.5-14.5) % Monocytes % 12.1 H 9.7 H (0-9) % Calcium 8.5 L (8.6-10.0) mg/dL Total Protein 6.5 L (6.6-8.7) g/dL Albumin 3.7 L (4.0-5.0) g/dL Lipase 176 H (13-60) U/L 08/20/17 Range/Units 06:30 RBC (4.40-5.70) M/uL Hgb (14.0-18.0) gm/dl Hct (42.0-52.0) % RDW (11.5-14.5) % Monocytes % (0-9) % Calcium 8.3 L (8.6-10.0) mg/dL Total Protein 6.2 L (6.6-8.7) g/dL Albumin 3.5 L (4.0-5.0) g/dL Lipase 68 H (13-60) U/L Condition at Discharge: (2) Stable Discharge Medications - Discharge Medications Prescriptions: Hydrocodone/Acetaminophen [[place] 5-325 Tablet] 1 each PO Q6HR PRN #12 tablet PRN Reason: Abdominal Pain Ondansetron HCl [Zofran] 4 mg PO Q6HR PRN #12 tablet PRN Reason: Nausea Pantoprazole Sodium [Protonix] 20 mg PO DAILY #10 tablet. Home Medications: Ambulatory Orders Citalopram Hydrobromide [Celexa] 10 mg PO QHS tablet 08/21/17 [Last Taken Unknown] Hydrocodone/Acetaminophen [[place] 5-325 Tablet] 1 each PO Q6HR PRN #12 tablet [Last Taken Unknown] Ondansetron HCl [Zofran] 4 mg PO Q6HR PRN #12 tablet 08/21/17 [Last Taken Unknown] Pantoprazole Sodium [Protonix] 20 mg PO DAILY #10 tablet. 08/21/17 [Last Taken Unknown] Discharge Plan - Discharge Instructions Activity at Discharge: Resume Usual Activities As Tolerated Diet at Discharge: Regular Diet Additional Instructions: - 2 Activity: As tolerated 2 Diet: As tolerated 2 Follow Up: With Gwendolyn on September 03 at 11:20am Follow up with GI for a colonoscopy. 2 Additional: -For pain [place] 5mg as needed -For nausea take Zofran Q4H as needed -Take Protonix 20mg daily - Return to the closest emergency department with any new or worsening symptoms. Quality Measures - Quality Measures Quality Measures: Documentation of Current Medications in Medical Record, Screening for High Blood Pressure and F/U Documented - Current Medications Quality Measure: Measure #130: Documentation of Current Medications Documentation of Current Medications: <Current Medications Documented/Reviewed> [[id number]] - Blood Pressure Screening Quality Measure: Screening for High Blood Pressure and Follow-Up Documented Does Patient Have Any of the Following: No Blood Pressure Classification: Pre-Hypertensive BP Reading Systolic Measurement: 143 Diastolic Measurement: 89 Screening for High Blood Pressure: < Pre-Hypertensive BP, F/U Documented > [ [id number]] Pre-Hypertensive Follow-up Interventions: Follow-up with rescreen every year., Lifestyle modifications. Lifestyle Modification: Weight Reduction, Dietary Approaches to Stop Hypertension (DASH) Eating Plan - Elder Abuse Suspicion Index EASI Reference Information: Madai FLORENCE, True C, Tanesha D, Esequiel Smyth.Development and validation of a tool to assist physicians identification of elder abuse: The Elder Abuse Suspicion Index (EASI ). Journal of Elder Abuse and Neglect, 2008; 20 (3): 276-300.
== END 2017-08-21 14:15 | disposition home or self-care (01) | DRG 392 ==
LOC: ER 09:10 → MEDSURG 17:23
PROVIDERS: ADMIT Internal Medicine; ATTEND Internal Medicine
DX: K52.9 Noninfective gastroenteritis and colitis, unspecified (principal); R11.10 Vomiting, unspecified; R19.7 Diarrhea, unspecified; F12.90 Cannabis use, unspecified, uncomplicated
CPT/HCPCS: 80048; 80053; 80076; 81001; 82272; 83690; 85025; 85027; 87329; 87425; 87427; 87493; 89055; 96361; 96365; 96375; 96376; 99223; 99233; 99239; 99285; J1170; J2405; J2550; J7030